=== PATIENT | male | born 1950 | race Caucasian/White ===

== ENCOUNTER 2016-12-06 19:14 | Emergency (ER) | payer MEDICARE, BC ==
[~2016-12-06 19:14] MED LIST: ATIVAN0.5 MG PO; COLACE100 MG; COLACE100 MG PO; DULCOLAX10 MG/SUPP RC; DULCOLAX5 MG PO; GAS-X80 MG PO; LEVAQUIN750 MG PO; LIPITOR; LORTAB 5/500 TA1 TAB; MIRALAX17 G1 PO; NO MEDS; NORCO 5/325 TAB1 TAB PO; OXYCODONE/APAP PO; PERCOCET 5MG/AP1 TA1 PO; PRILOSEC20 MG PO; STATIN PO; TESSALON PERLE100 MG PO; VENTOLIN HFA18 GM INH; ZOFRAN ODT4 MG/UDTAB PO
[2016-12-06] MEDS ORDERED: LEXAPRO10 M2 PO (20:13)
[2016-12-06] MEDS ORDERED: ATIVAN0.5 M1 PO (20:18)
[2016-12-06] MEDS ORDERED: AMBIEN10 M1 PO (20:18)
[2016-12-06] MEDS ORDERED: LIPITOR10 M1 PO (20:19)
== END 2016-12-06 22:00 ==
LOC: EDMED 19:14
DX: M70.31 Other bursitis of elbow, right elbow (principal); Z88.5 Allergy status to narcotic agent; Z87.891 Personal history of nicotine dependence